=== PATIENT | male | born 1945 | race Two or more races ===

== ENCOUNTER 2016-10-13 17:15 | Emergency (ER) | payer OTHER, SELFPAY ==
[~2016-10-13] VITALS: Ht 152.4 cm; Wt 66.0 kg
[2016-10-13 17:18] VITALS: BP 161/86
[2016-10-13] MEDS ORDERED: IBUPROFEN 200 MG TABLET PO ONE (18:30)
[2016-10-13] MEDS ORDERED: ONDANSETRON ODT 4 MG PO ONE (18:30)
[2016-10-13] MEDS ORDERED: HYDROcodone/APAP 5/325 TABLET PO ONE (18:30)
[2016-10-13] MEDS ORDERED: ONDANSETRON ODT 4 MG ONE (18:31)
[2016-10-13] MEDS ORDERED: IBUPROFEN 200 MG TABLET ONE (18:31)
[2016-10-13] MEDS ORDERED: HYDROcodone/APAP 5/325 TABLET ONE (18:31)
== END 2016-10-13 19:47 | disposition home or self-care (01) ==
LOC: ED 19:36
DX: M79.662 Pain in left lower leg (principal)
CPT/HCPCS: 36415; 73564; 84550; 85025; 99285; Q0162